=== PATIENT | female | born 1995 | race Caucasian/White ===

== ENCOUNTER 2019-03-09 11:37 | Outpatient (CLI) | payer BC ==
[~2019-03-09] VITALS: Ht 165.1 cm; Wt 95.9 kg
[~2019-03-09 11:37] MED LIST: GABAPENTIN100 MG PO; TOPAMAX50 MG PO
--- NOTE | 2019-03-09 12:00 | NUR ---
1140- Pt arrives on unit ambulatory with complaints of high BP at home, seeing "glitter" in her vision, and RUQ pain that is intermittent. Pt into bathroom, changes into gown. 1150- Pt into bed, EFM and TOCO on and tracing. Assessment completed. VSS. Plan to watch BPs and discuss Pt status with Dr Teran. Call light within reach.
[2019-03-09 12:01] VITALS: BP 118/74; PULSE 87; TEMP 98.6
[2019-03-09] MEDS ORDERED: CONCEPT DHA1 CAP PO (12:04)
[2019-03-09 12:30] VITALS: BP 104/66; PULSE 82
[2019-03-09 13:00] VITALS: BP 98/60; PULSE 76
[2019-03-09 14:00] VITALS: BP 120/68; PULSE 77
[2019-03-09 14:10] LABS: COLLECTION METHOD CLEAN CATCH
[2019-03-09 14:12] LABS: BASO % 0.1 % (0.0-2.0); EOS # 0.1 (0.0-0.7); EOS % 0.9 % (0-4.0); GRAN # 6.5 (1.4-6.5); GRAN % 71.8 % (42.2-75.2); HEMOGLOBIN 10.2 g/dl (12.5-16.0); LYMPH # 1.6 (1.2-3.4); LYMPH % 17.6 % (20.0-51.0); MEAN CELL VOLUME 88 fl (80.0-100.0); MEAN CORPUSCULAR HEMOGLOBIN 29 pg (27.0-31.0); MEAN CORPUSCULAR HGB CONC 33 g/dl (33.0-37.0); MEAN PLATELET VOLUME 9.7 fl (7.4-10.4); MONO # 0.7 (0.1-0.6); MONO % 8.2 % (1.7-9.3); PLATELET COUNT 192 K/mm3 (130-400); RED BLOOD COUNT 3.49 M/mm3 (4.10-5.30); REDCELL DISTRIBUTION WIDTH-CV 15.3 % (11.5-14.5)
[2019-03-09 14:15] LABS: HEMATOCRIT 30.8 % (37.0-47.0)
[2019-03-09 14:22] LABS: ALBUMIN 3.5 gm/dL (3.5-5.0); BILIRUBIN,TOTAL 0.4 mg/dL (0.0-1.0); CALCIUM 9.1 mg/dL (8.4-10.2); CREATININE, serum 0.56 (0.52-1.25); TOTAL PROTEIN 6.6 gm/dL (6.4-8.2)
[2019-03-09 14:26] LABS: AMORPHOUS CRYSTAL Present /uL; MUCOUS Present /lpf; PH 7 (5-8); SQUAMOUS EPITHELIAL 0-2 /hpf; URINE APPEARANCE Turbid; URINE BACTERIA Occasional /hpf; URINE BILIRUBIN Negative (NEGATIVE); URINE BLOOD Negative (NEGATIVE); URINE COLOR Yellow; URINE GLUCOSE Negative (NEGATIVE); URINE KETONE Negative (NEGATIVE); URINE LEUKOCYTE ESTERASE Negative (NEGATIVE); URINE NITRATE Negative (NEGATIVE); URINE PROTEIN(semi-quant) Negative (NEGATIVE); URINE UROBILINOGEN Negative (NEGATIVE)
[2019-03-09 14:30] VITALS: BP 105/65; PULSE 67
--- NOTE | 2019-03-09 14:30 | NUR ---
1430- EFM and TOCO off. Plan to discharge home explained. Encouraged Pt to keep next scheduled appointment with Dr Matta and to call if symptoms worsen. Pt verbalizes understanding. Pt up to void and changed into street clothes. 1440- Discharge paperwork given and explained. Pt ambulates off unit in stable condition with .
== END 2019-03-09 14:40 ==
LOC: LDRO 11:37 → LDR 12:10 → LDRO 14:40 → LDR 03-10 08:30
PROVIDERS: Student in an Organized Health Care Education/Training Program
DX: Z34.93 Encounter for supervision of normal pregnancy, unspecified, third trimester (principal); Z3A.37 37 weeks gestation of pregnancy
CPT/HCPCS: OP

== ENCOUNTER 2019-03-31 11:03 | Inpatient (IN) | payer BC ==
[~2019-03-31] VITALS: Ht 165.1 cm; Wt 95.5 kg
[~2019-03-31 11:03] MED LIST changes: +CONCEPT DHA1 CAP PO
--- NOTE | 2019-03-31 19:20 | NUR ---
1919- Pt arrived on unit ambulatory and escorted by for scheduled induction. Oriented to room, bed and call light within reach. 1923- EFM and toco monitors started. Vital signs WNL. Pt reports no contractions, denies vaginal bleeding and reports normal movement. Induction plan of care reviewed. 1954- Consents reviewed and signed. 2007- IV started and labs obtained. 2012- Pt off EFM to the bathroom. 2029- SVE by this RN FT/thick/-3. Cytotec placed as ordered. See EMAR for details.
[2019-03-31 19:30] VITALS: BP 128/75; PULSE 82; TEMP 98
[2019-03-31 20:47] LABS: MEAN CELL VOLUME 87 fl (80.0-100.0); MEAN CORPUSCULAR HEMOGLOBIN 29 pg (27.0-31.0); MEAN CORPUSCULAR HGB CONC 33 g/dl (33.0-37.0); PLATELET COUNT 208 K/mm3 (130-400); RED BLOOD COUNT 3.78 M/mm3 (4.10-5.30); REDCELL DISTRIBUTION WIDTH-CV 15.8 % (11.5-14.5)
[2019-03-31 21:00] VITALS: BP 123/77; PULSE 83
[2019-03-31 21:26] LABS: BAND 4 % (0-10); HYPOCHROMIA 1+; LYMPHOCYTE 18 % (20.0-51.0); METAMYELOCYTE 2 % (0-0); NEUTROPHILS 67 % (42.0-75.2); PLATELET ESTIMATE NORMAL (NORMAL)
[2019-03-31 21:30] VITALS: BP 111/68; PULSE 76
[2019-03-31 22:00] VITALS: BP 110/72; PULSE 82
[2019-04-01] VITALS (66 sets, daily range): BP systolic 96–139; BP diastolic 55–85; PULSE 60–110; TEMP 97.6–99.6
--- NOTE | 2019-04-01 06:15 | NUR ---
Report from Janessa Sanford RN and care of patient assumed. RN at bedside to introduce self to patient and review plan of care. At bedside palpating abdomen and adjusting toco. Patient denies feeling contractions until 0627.
--- NOTE | 2019-04-01 07:45 | NUR ---
Dr. Matta at bedside. Reviews FHR strip and contraction pattern. Vertex presentation confirmed via bedside u/s. SVE per provider . Orders to continue increasing Pitocin and physician will come reassess over lunch break.
--- NOTE | 2019-04-01 08:30 | NUR ---
Intermittent periods of maternal heart rate tracing due to maternal postition, sitting upright in bed. EFM adjusted. Patient becoming more uncomfortable with contractions.
--- NOTE | 2019-04-01 08:40 | NUR ---
Patient moving around in bed, difficulty tracing contractions via toco. Patient repostioned RL and toco adjusted.
--- NOTE | 2019-04-01 09:00 | NUR ---
Patient sitting upright in bed, maternal heart rate tracing. Patient up to bathroom then back to bed. Changing positions frequently, intermittent maternal heart rate tracing due to position. RN remains at bedside.
--- NOTE | 2019-04-01 15:50 | NUR ---
1550- SVE 10/+1. See physician notification, orders to labor down and begin pushing at 1630. Patient updated on plan of care, repositioned sitting upright and wedged left. 1630- Pace catheter removed prior to pushing, pericare given. Patient reports increased pressure and urge to push, coached on pushing. 1638- Patient begins pushing with contractions with RN at bedside.
--- NOTE | 2019-04-01 18:15 | NUR ---
Report recieved from Liv MILLER. at bedside assessing pushing and FHR strip reviewed. Plan of care explained to pt per provider. to remains on unit. This RN starts pushing with pt. Recurrent variables noted with contractions. 1831: Straight catherization completed with 75mls of bloody urine output noted. Pt continue pushing. 0: at bedside to assess pushing progress and reviewing FHR strip. Plan of care and vacuum delivery explained to pt and by . 1899: Pt prepped for vacuum delivery and assissted into footplates. 1903: Vacuum placed by and pt begins pushing with contractions. 1912: Vacuum pop off X1. Pt completes pushing with contraction and vacuum reapplied by . 1915: Vacuum pop off X2. Pt completes pushing with contractions and vacuum reapplied by . 1918: Vacuum extraction delivery of infants head by . Vacuum removed. Nuchal X2 reduced. 1919: Following delivery of infant shoulders and body. Pitocin off per protocol. Cord clamped X2 and cut by FOB. to warmer per pt's request. Cord gases obtained. 1923: Spontaneous delivery of intact placenta by . Pitocin resummed at 333mus/hr per protocol. Straight catherization completed. Second degree laceration repaired by . Fundal message completed. Fundus firm, midline and bleeding minimal. Small clots notes with message. Pericare provided, pads changed and ice pack applied. Pt repositioned in bed. Plan of care and safety precautions explained to pt and who verbalize understanding. Call light within reach.
--- NOTE | 2019-04-01 18:15 | NUR ---
Dr. Matta at bedside to assess pushing efforts. Patient continues to push with contractions. Report given to Donte Ware RN.
[2019-04-02 03:30] VITALS: BP 113/76; PULSE 79; TEMP 98.8
[2019-04-02 07:30] VITALS: BP 120/72; PULSE 74; TEMP 97.9
[2019-04-02 08:33] LABS: HEMATOCRIT 30.9 % (37.0-47.0)
--- NOTE | 2019-04-02 09:52 | NUR ---
Initial visit; Parents thanked for stopping by and offering congratulaions and God's blessings for the of their daughter. brought with her other visitors so she left them to visit.
[2019-04-02 11:30] VITALS: BP 127/80; PULSE 83; TEMP 97.5
[2019-04-02] MEDS ORDERED: IBU600 MG PO (11:52)
[2019-04-02] MEDS ORDERED: PERCOCET 325 MG1 TA2 PO (11:52)
[2019-04-02] MEDS ORDERED: ZOLOFT 50MG50 MG PO (11:53)
[2019-04-02 15:00] VITALS: BP 102/69; PULSE 78; TEMP 97.9
[2019-04-02 19:27] VITALS: BP 117/65; PULSE 82; TEMP 97.6
[2019-04-03 08:15] VITALS: BP 113/76; PULSE 83; TEMP 97.6
== END 2019-04-03 11:45 | disposition home or self-care (01) | DRG 807 ==
LOC: LDR 11:03 → OB 04-01 22:58
PROVIDERS: ADMIT Obstetrics & Gynecology
PROC: 10D07Z6 Extraction of Products of Conception, Vacuum, Via Natural or Artificial Opening (ICD-10-PCS; principal; 2019-04-01)
PROC: 0KQM0ZZ Repair Perineum Muscle, Open Approach (ICD-10-PCS; 2019-04-01)
PROC: 3E0P7VZ Introduction of Hormone into Female Reproductive, Via Natural or Artificial Opening (ICD-10-PCS; 2019-04-01)
PROC: 3E033VJ Introduction of Other Hormone into Peripheral Vein, Percutaneous Approach (ICD-10-PCS; 2019-04-01)
DX: O48.0 Post-term pregnancy (principal); Z37.0 Single live birth; Z23 Encounter for immunization; O99.344 Other mental disorders complicating childbirth; O70.1 Second degree perineal laceration during delivery; F41.9 Anxiety disorder, unspecified; Z3A.41 41 weeks gestation of pregnancy
CPT/HCPCS: J2405; J2590; J2795; J7120

== ENCOUNTER 2019-06-22 14:58 | Inpatient (IN) | payer BC ==
[~2019-06-22] VITALS: Ht 165.1 cm; Wt 87.6 kg
[~2019-06-22 14:58] MED LIST changes: +IBU600 MG PO; +PERCOCET 325 MG1 TA2 PO; +ZOLOFT 50MG50 MG PO
[2019-06-22] MEDS ORDERED: NORCO 325 MG-51 TAB PO (15:16)
[2019-06-22] MEDS ORDERED: COLACE 100100 MG/CAP PO (15:22)
[2019-06-22] MEDS ORDERED: DULCOLAX TAB5 MG PO (15:23)
[2019-06-22 15:30] LABS: BASO % 0.2 % (0.0-2.0); EOS # 0.4 (0.0-0.7); EOS % 4.3 % (0-4.0); GRAN # 5.9 (1.4-6.5); GRAN % 66.9 % (42.2-75.2); HEMATOCRIT 38.1 % (37.0-47.0); HEMOGLOBIN 12.6 g/dl (12.5-16.0); LYMPH # 1.5 (1.2-3.4); LYMPH % 17.1 % (20.0-51.0); MEAN CELL VOLUME 87 fl (80.0-100.0); MEAN CORPUSCULAR HEMOGLOBIN 29 pg (27.0-31.0); MEAN CORPUSCULAR HGB CONC 33 g/dl (33.0-37.0); MEAN PLATELET VOLUME 8.9 fl (7.4-10.4); MONO % 11.2 % (1.7-9.3); PLATELET COUNT 247 K/mm3 (130-400); RED BLOOD COUNT 4.36 M/mm3 (4.10-5.30); REDCELL DISTRIBUTION WIDTH-CV 13.9 % (11.5-14.5)
[2019-06-22 15:39] LABS: ALBUMIN 4.3 gm/dL (3.5-5.0); BILIRUBIN,TOTAL 1.1 mg/dL (0.0-1.0); CALCIUM 9.4 mg/dL (8.4-10.2); CREATININE, serum 0.72 (0.52-1.25)
[2019-06-22 15:56] LABS: C-REACTIVE PROTEIN 15.2 mg/dL (0.0-0.9)
--- NOTE | 2019-06-22 18:45 | NUR ---
Patient arrives to floor from ED per cart. Is alert and oriented, cries in pain. Has SL to left AC. Family at bedside.
--- NOTE | 2019-06-22 19:10 | NUR ---
Medicated with Dilaudid 0.5mg IVP at this time. Rates pain 6/10 to right abdomen. Abdomen is distended, soft and very sensitive to touch.
[2019-06-22 19:30] VITALS: BP 138/79; PULSE 68; TEMP 98.4
--- NOTE | 2019-06-22 20:50 | NUR ---
Patient reports feeling like it is hard to breathe, assisted to bathroom then to chair. SaO2 96% on room air. Feels better sitting in chair.
--- NOTE | 2019-06-22 21:02 | NUR ---
Medicated with Dilaudid 0.5mg IVP for pain to right abdomen 12/30. Jello given to patient. Reports she hasn't passed gas and feels bloated. Will call Dr Cardozo for dulcolax suppos. Remains sitting in chair.
--- NOTE | 2019-06-22 22:00 | NUR ---
Medicated with Dulcolax suppository. Encouraged to hold until she feels like she has good urge to have a BM.
--- NOTE | 2019-06-22 23:08 | NUR ---
Medicated with Dilaudid 0.5mg IVP for pain 7/10 to right abdomen. Reports no gas or stool from suppository. Remains sitting up in chair.
[2019-06-22 23:15] VITALS: BP 113/67; PULSE 99; TEMP 98
[2019-06-23] VITALS (12 sets, daily range): BP systolic 122–139; BP diastolic 69–90; PULSE 89–117; TEMP 98–99.3
--- NOTE | 2019-06-23 01:50 | NUR ---
Patient sitting in chair, denies need for pain meds at this time.
--- NOTE | 2019-06-23 03:17 | NUR ---
PATIENT REMAINS UP IN CHAIR AT BEDSIDE. DENIES NEED FOR PAIN MEDS AT THIS TIME.
--- NOTE | 2019-06-23 03:55 | NUR ---
MEDICATED WITH IV DILAUDID 0.5MG AFTER PATIENT HAD BEEN UP TO BATHROOM AND VOIDED. ACTIVITY MAKES PAIN TO RIGHT ABDOMEN SEVERE. ICE PACK TO RIGHT SHOULDER FOR COMFORT.
--- NOTE | 2019-06-23 05:23 | NUR ---
PATIENT YELLING OUT, SIGNIFICANT SHARP, STABBING PAIN TO RIGHT ABDOMEN. AREA IS DISTENDED, SOFT AND SENSITIVE TO TOUCH. BELCHING, NO FLATUS. VOIDS 150CC AT THIS TIME. SITTING ON EDGE OF BED, HEAT PACK APPLIED.
--- NOTE | 2019-06-23 05:28 | NUR ---
SPOKE WITH DR ROJAS REGARDING PT PAIN. NEW ORDERS RECEIVED.
--- NOTE | 2019-06-23 05:35 | NUR ---
Medicated with Dilaudid 0.5mg IVP and Zofran 4mg IVP at this time. Patient sitting in recliner chair at bedside. Spouse at bedside.
--- NOTE | 2019-06-23 06:18 | NUR ---
Patient resting quietly in the chair.
--- NOTE | 2019-06-23 08:00 | NUR ---
PATIENT IS A&O. VSS. PATIENT C/O ABDOMINAL PAIN AND GAS. PATIENT IS UNABLE TO PASS GAS BUT IS HAVING GAS PAIN IN SHOULDERS AND RIGHT SIDE. PATIENT UP IN BEDSIDE CHAIR WITH K-PAP ON. PATIENT GETTING IV DILAUDID AND NAUSEA MEDICATIONS FREQUENTLY. PATIENT CAN HARDLY AMBULATE DUE TO PAIN. USING BEDSIDE COMMODE. PATIENT HAD A BABY 2 MONTHS AND STATES SHE CAN'T CARE FOR HER LIKE THIS. PATIENT HAD HER GALLBLADER REMOVED IN [facility] OVER A WEEK AGO AND CALLED MANY TIMES ABOUT HER INCREASING PAIN BUT WAS TOLD TO WALK AND SHE WOULD BE FINE. PATIENT'S MOTHER LATER DROVE HER HERE. WAITING FOR SURGEON TO ROUND. WILL LIKELY DO A HIDA SCAN TODAY AND POSSIBLE ERCP.
--- NOTE | 2019-06-23 09:16 | NUR ---
TRUDI met with the patient and her mother, Keira to discuss a discharge plan. The patient was sleepy and answered some question and patient's mother answered some too. The patient lives in [place] with her . The patient does not use DME and is independent with ADLs. The patient's PCP is MARGUERITE Tobar in [place] and receives medications from [facility] or [facility] in [place]. The patient does not have advanced directives in the EMR. The patient will return home upon discharge with her mother or providing transportation. There are no additional needs at this time.
--- NOTE | 2019-06-23 09:25 | NUR ---
PATIENT GOING DOWN FOR HIDA SCAN.
--- NOTE | 2019-06-23 11:18 | NUR ---
Initial visit; Patient out of room, News Gathering Technician spoke with family, letting them know of the availability of spiritual care at our hospital and also News Gathering Technician offered God's blessings to patient and family.
--- NOTE | 2019-06-23 16:30 | NUR ---
PATIENT GOING DOWN TO OR FOR ERCP
--- NOTE | 2019-06-23 18:40 | NUR ---
PATIENT BACK IN ROOM FROM ERCP. VSS. FAMILY AT BEDSIDE. JAVA PORTAL DEVELOPER NURSE AT BEDSIDE FOR BEDSIDE REPORT.
--- NOTE | 2019-06-23 21:23 | NUR ---
PATIENT UP FROM ER TO ROOM 324 AT 1830. VSS. HR SLIGHTLY ELEVATED. A&O. STATES HER PAIN IS MINIMAL AND CONTROLLED WITH TRAVELING REPAIR ACCOUNTANT. TENDERNESS TO LUQ UPON PALPATION. ABD SOUNDS ABSENT IN ALL QUADRANTS EXCEPT FOR RLQ. X4 LAPS W GLUE CDI AND OPEN TO AIR. ABD IS DISTENDED AND FIRM. DENIES NAUSEA AT THIS TIME. TOOK SCHEDULED MEDICATIONS WITHOUT DIFFICULTY. TENDERNESS NOTED TO THROAT. STATES SHE IS HAVING SHOULDER PAIN, KPAD APPLIED. ABX INFUSING TO L AC WITHOUT ISSUE. NO FURTHER NEEDS AT THIS TIME. WILL CONTINUE TO MONITOR.
--- NOTE | 2019-06-23 22:18 | NUR ---
patients O2 sats dropped to 70s. 2 L O2 via NC initiated. HR elevated to 120s. patient awakens to name. states she feels okay. no further needs at this time. will continue to monitor.
--- NOTE | 2019-06-23 22:59 | NUR ---
patient ambulated to bathroom with standby assist. passed loose unmeasured stool and voided. patient states pain has increased since ambulating. teaching done regarding mortuary beautician. will no further needs at this time. will continue to monitor.
[2019-06-24] VITALS (10 sets, daily range): BP systolic 102–139; BP diastolic 52–79; PULSE 70–98; TEMP 97.4–98.5
[2019-06-24 06:19] LABS: BASO % 0.2 % (0.0-2.0); EOS # 0.4 (0.0-0.7); EOS % 4.9 % (0-4.0); GRAN # 5.3 (1.4-6.5); GRAN % 63.7 % (42.2-75.2); LYMPH # 1.5 (1.2-3.4); MEAN CELL VOLUME 88 fl (80.0-100.0); MEAN CORPUSCULAR HGB CONC 33 g/dl (33.0-37.0); MEAN PLATELET VOLUME 8.6 fl (7.4-10.4); MONO # 1.1 (0.1-0.6); MONO % 12.8 % (1.7-9.3); PLATELET COUNT 231 K/mm3 (130-400); RED BLOOD COUNT 3.56 M/mm3 (4.10-5.30)
[2019-06-24 06:26] LABS: HEMATOCRIT 31.3 % (37.0-47.0); HEMOGLOBIN 10.4 g/dl (12.5-16.0); MEAN CORPUSCULAR HEMOGLOBIN 29 pg (27.0-31.0)
[2019-06-24 06:34] LABS: ALBUMIN 3.3 gm/dL (3.5-5.0); BILIRUBIN,TOTAL 1.1 mg/dL (0.0-1.0); CALCIUM 8.8 mg/dL (8.4-10.2); CREATININE, serum 0.67 (0.52-1.25); TOTAL PROTEIN 6.4 gm/dL (6.4-8.2)
[2019-06-24 06:35] LABS: INR 1.2 (0.8-3.0); PROTHROMBIN TIME 14.2 SECONDS (9.7-12.8)
--- NOTE | 2019-06-24 07:07 | NUR ---
Reported onto PAUL Bond
--- NOTE | 2019-06-24 07:30 | NUR ---
Shift assessment completed. Pt reports no pain, states "feeling much better than yesterday." Lap incisions x4 CDI and CONSTRUCTION INSPECTOR due to cholecystectomy on 06-17-19. INT in left upper arm no pain, redness, or swelling at site. Pt on 1L O2 NC. Abdominal is distended with hypoactivity in all quadrants. SANDER OPERATOR dilaudid 0.3 mg/6 mins when needed. Liquid diet with no complications.
--- NOTE | 2019-06-24 09:30 | NUR ---
Patient alert and oriented, answers questions appropriately. Abdomen soft, non tender, non distended. Bowel sounds active x4 quads. +Flatus. No c/o abdominal pain or tenderness. ASSOCIATE PROFESSOR OF ART HISTORY infusing into LAC IV, settings verified against MAR. Requests advance in diet and activity. No c/o at this time.
--- NOTE | 2019-06-24 09:45 | NUR ---
requested to ambulate. ambulated with family member around floor for 15 minutes. sitting on bed now and has no complaints of pain.
--- NOTE | 2019-06-24 10:15 | NUR ---
Initial visit; Patient sleeping, Rag Inspector spoke with family, making them aware of the availability of Spiritual Care at our hospital and wishing them well and offering God's blessings.
--- NOTE | 2019-06-24 11:01 | NUR ---
Reported off to PAUL Bond
--- NOTE | 2019-06-24 20:00 | NUR ---
Pt. sitting up in chair at this time. Pt. is A&OX3, assessment complete. INT to lt. forearm patent. Pt. reports pain at a 5 on pain scale, will give pain meds per orders. Pt. denies further needs, call light within reach.
[2019-06-25 04:16] VITALS: BP 114/55; PULSE 64; TEMP 98.2
[2019-06-25 07:13] VITALS: BP 114/65; PULSE 68; TEMP 98.2
--- NOTE | 2019-06-25 07:15 | NUR ---
Reported onto PAUL Bond
[2019-06-25 07:23] LABS: ALBUMIN 3.3 gm/dL (3.5-5.0); BILIRUBIN,TOTAL 0.7 mg/dL (0.0-1.0); CALCIUM 8.8 mg/dL (8.4-10.2); CREATININE, serum 0.58 (0.52-1.25); POTASSIUM 3.6 mmol/L (3.4-5.0); TOTAL PROTEIN 6.3 gm/dL (6.4-8.2)
[2019-06-25 07:28] LABS: BASO % 0.3 % (0.0-2.0); EOS # 0.6 (0.0-0.7); EOS % 8.8 % (0-4.0); GRAN # 3.3 (1.4-6.5); GRAN % 52.3 % (42.2-75.2); HEMOGLOBIN 10.3 g/dl (12.5-16.0); LYMPH # 1.6 (1.2-3.4); LYMPH % 26.1 % (20.0-51.0); MEAN CELL VOLUME 88 fl (80.0-100.0); MEAN CORPUSCULAR HEMOGLOBIN 29 pg (27.0-31.0); MEAN CORPUSCULAR HGB CONC 33 g/dl (33.0-37.0); MEAN PLATELET VOLUME 8.9 fl (7.4-10.4); MONO # 0.7 (0.1-0.6); MONO % 11.9 % (1.7-9.3); PLATELET COUNT 241 K/mm3 (130-400); RED BLOOD COUNT 3.59 M/mm3 (4.10-5.30); REDCELL DISTRIBUTION WIDTH-CV 13.5 % (11.5-14.5)
[2019-06-25 07:33] LABS: HEMATOCRIT 31.5 % (37.0-47.0)
--- NOTE | 2019-06-25 08:00 | NUR ---
Shift assessment completed. First meal on fat controlled diet tolerated well. No reports of pain. Patient stated " she is ready to go home". Lap incisions x4 CDI, well approximated and TRAFFIC SAFETY ADMINISTRATOR. INT in JULISSA with no pain, redness, or swelling at site. Abdomen is soft with audible bowel sounds in all quadrants. Last bowel movement was on 12-19. passing flatus.
--- NOTE | 2019-06-25 10:00 | NUR ---
Patient alert and oriented, answers questions appropriately. See assessment. Abdomen soft, non tender, non distended. Bowel sounds active x4 quads. +Flatus. +Bowel movement. No c/o abdominal pain or pressure. No other c/o at this time.
[2019-06-25 10:25] VITALS: BP 103/60; PULSE 60; TEMP 98.3
--- NOTE | 2019-06-25 10:52 | NUR ---
Reported off to PAUL Bond.
[2019-06-25] MEDS ORDERED: NORCO 325 MG-51 TAB PO (11:17)
[2019-06-25] MEDS ORDERED: PROTONIX 40MG T40 MG PO (11:18)
[2019-06-25] MEDS ORDERED: CIPRO 500MG TA500 MG PO (11:18)
[2019-06-25] MEDS ORDERED: FLAGYL500 MG PO (11:18)
--- NOTE | 2019-06-25 12:55 | NUR ---
Discharge instructions reviewed with patient and spouse, verbalized understanding. Discharged ambulatory to auto/home with family at 1255.
== END 2019-06-25 12:55 | disposition home or self-care (01) | DRG 393 ==
LOC: COL.ER 14:58 → SURG 17:24
PROVIDERS: Emergency Medicine; Internal Medicine Gastroenterology; ADMIT Surgery
PROC: 0F798DZ Dilation of Common Bile Duct with Intraluminal Device, Via Natural or Artificial Opening Endoscopic (ICD-10-PCS; principal; 2019-06-23 16:45)
DX: K91.89 Other postprocedural complications and disorders of digestive system (principal); K25.4 Chronic or unspecified gastric ulcer with hemorrhage; F32.9 Major depressive disorder, single episode, unspecified; F41.9 Anxiety disorder, unspecified; G43.909 Migraine, unspecified, not intractable, without status migrainosus; Y83.8 Other surgical procedures as the cause of abnormal reaction of the patient, or of later complication, without mention of misadventure at the time of the procedure; K59.00 Constipation, unspecified; Z90.49 Acquired absence of other specified parts of digestive tract; Z88.8 Allergy status to other drugs, medicaments and biological substances; Z79.891 Long term (current) use of opiate analgesic
CPT/HCPCS: OP; A9537; C1769; C2625; C9113; G0378; J0744; J1170; J2060; J2405; J2550; J2704; J7030; Q9967

== ENCOUNTER 2019-07-01 11:04 | Inpatient (IN) | payer BC ==
[2019-07-01] VITALS (15 sets, daily range): BP systolic 106–128; BP diastolic 62–89; PULSE 83–116; TEMP 98.8–99.7
[~2019-07-01] VITALS: Wt 80.0 kg
[~2019-07-01 11:04] MED LIST changes: +CIPRO 500MG TA500 MG PO; +COLACE 100100 MG/CAP PO; +DULCOLAX TAB5 MG PO; +FLAGYL500 MG PO; +NORCO 325 MG-51 TAB PO; +PROTONIX 40MG T40 MG PO
[2019-07-01 11:33] LABS: HEMATOCRIT 38.4 % (37.0-47.0); HEMOGLOBIN 12.9 g/dl (12.5-16.0); MEAN CELL VOLUME 87 fl (80.0-100.0); MEAN CORPUSCULAR HEMOGLOBIN 29 pg (27.0-31.0); MEAN CORPUSCULAR HGB CONC 34 g/dl (33.0-37.0); MEAN PLATELET VOLUME 8.6 fl (7.4-10.4); PLATELET COUNT 406 K/mm3 (130-400); RED BLOOD COUNT 4.41 M/mm3 (4.10-5.30); REDCELL DISTRIBUTION WIDTH-CV 13.8 % (11.5-14.5)
[2019-07-01 11:42] LABS: COLLECTION METHOD CLEAN CATCH
[2019-07-01 12:04] LABS: MUCOUS Present /lpf; PH 6 (5-8); URINE APPEARANCE Clear; URINE BACTERIA None Seen /hpf; URINE BILIRUBIN Negative (NEGATIVE); URINE BLOOD Negative (NEGATIVE); URINE COLOR Yellow; URINE GLUCOSE Negative (NEGATIVE); URINE KETONE Negative (NEGATIVE); URINE LEUKOCYTE ESTERASE 1+ (NEGATIVE); URINE NITRATE Negative (NEGATIVE); URINE PROTEIN(semi-quant) Negative (NEGATIVE); URINE RBC 0-2 /hpf; URINE UROBILINOGEN Negative (NEGATIVE)
[2019-07-01] MEDS ORDERED: PROBIOTIC ACID1 EAC3 PO (12:13)
[2019-07-01 12:15] LABS: ALBUMIN 4.7 gm/dL (3.5-5.0); BILIRUBIN,TOTAL 0.8 mg/dL (0.0-1.0); C-REACTIVE PROTEIN 8.4 mg/dL (0.0-0.9); CALCIUM 9.9 mg/dL (8.4-10.2); CREATININE, serum 0.76 (0.52-1.25); POTASSIUM 4.2 mmol/L (3.4-5.0); TOTAL PROTEIN 8.8 gm/dL (6.4-8.2)
[2019-07-01 12:32] LABS: BAND 12 % (0-10); EOSINOPHIL 1 % (0-4); LYMPHOCYTE 9 % (20.0-51.0); NEUTROPHILS 72 % (42.0-75.2); PLATELET ESTIMATE NORMAL (NORMAL)
--- NOTE | 2019-07-01 14:22 | NUR ---
PT BROUGHT BY WHEELCHAIR TO CT ROOM AND ASSISTED ONTO TABLE. MONITORING EQUIPMENT PLACED. PT SCANNED.
--- NOTE | 2019-07-01 14:42 | NUR ---
1435PT WAS GIVEN 1MG VERSED AND 50 MCG FENTANYL 1442PT WAS GIVEN 50 MCG FENTANYL PT REPORTS FEELING MORE COMFORTABLE
--- NOTE | 2019-07-01 15:12 | NUR ---
GREENISH COLORED FLUID COLLECTED AND WILL BE SENT FOR ANEROBES AND AEROBES.
--- NOTE | 2019-07-01 15:25 | NUR ---
Arrives to room 341 via wheelchair from radiology after CT guided drain placement. and mother at side. Patient tearful complains of pain where drain site is. Site with guaze dressing, CDI. No drainage in tube at this time. Call light in reach.
--- NOTE | 2019-07-01 15:28 | NUR ---
called report to alida. pt was given 1 mg versed and 100 mcg fentanyl during. drain is sutured in place and tegaderm applied. pt denies pain at present.
[2019-07-01] MEDS ORDERED: TYLENOL 500MG500 MG PO (15:34)
[2019-07-01] MEDS ORDERED: NORCO 325 MG-51 TAB PO (15:35)
--- NOTE | 2019-07-01 15:40 | NUR ---
Flaquita with [facility] here for PICC placement. Family at side.
--- NOTE | 2019-07-01 22:08 | NUR ---
Pt doing ok. Laying in bed with at bedside. Does c/o pain at drain incision site, (CD&I with gauze). Gave PRN dilaudid. Had mild temp so PRN oxy/tylenol was given. Patient ambulated to bathroom x1 assist and tolerated fine. Urine was yellow and clear. LR running to PICC in RUE. No concerns at this time. Call light within reach, will continue to monitor.
[2019-07-02] VITALS (12 sets, daily range): BP systolic 101–113; BP diastolic 58–71; PULSE 81–99; TEMP 97.9–98.9
--- NOTE | 2019-07-02 04:07 | NUR ---
Pt has done ok through night, has been receiving PRN dilaudid about every 2 hours. States pain has been the same, not better or worse.
--- NOTE | 2019-07-02 09:56 | NUR ---
Streaks of blood mixed with straw colored fluid now noted in abdominal drain. Output remains minimal/scant - MD Sloan aware
[2019-07-02 09:59] LABS: BASO % 0.1 % (0.0-2.0); EOS # 0.8 (0.0-0.7); EOS % 5.5 % (0-4.0); GRAN # 10.6 (1.4-6.5); GRAN % 75.3 % (42.2-75.2); LYMPH # 1.3 (1.2-3.4); LYMPH % 9.1 % (20.0-51.0); MEAN CELL VOLUME 87 fl (80.0-100.0); MEAN CORPUSCULAR HEMOGLOBIN 29 pg (27.0-31.0); MEAN CORPUSCULAR HGB CONC 33 g/dl (33.0-37.0); MEAN PLATELET VOLUME 8.7 fl (7.4-10.4); MONO # 1.3 (0.1-0.6); MONO % 9.3 % (1.7-9.3); RED BLOOD COUNT 3.82 M/mm3 (4.10-5.30); REDCELL DISTRIBUTION WIDTH-CV 14.1 % (11.5-14.5)
[2019-07-02 10:00] LABS: HEMATOCRIT 33.2 % (37.0-47.0); PLATELET COUNT 281 K/mm3 (130-400)
[2019-07-02 10:10] LABS: ALBUMIN 3.8 gm/dL (3.5-5.0); BILIRUBIN,TOTAL 0.7 mg/dL (0.0-1.0); CREATININE, serum 0.66 (0.52-1.25); POTASSIUM 4.2 mmol/L (3.4-5.0); TOTAL PROTEIN 7.1 gm/dL (6.4-8.2)
--- NOTE | 2019-07-02 12:14 | NUR ---
Initial visit; Patient and her mom thanked Pearl Glue Drier for looking in on her and offering God's blessings.
--- NOTE | 2019-07-02 15:30 | NUR ---
MD Cas called and informed me [facility] and [facility] have not accepted pt for transfer. Pt and family updated - questions invited and answered
--- NOTE | 2019-07-02 15:41 | NUR ---
Radiology called for Abdomen Complete XRay
--- NOTE | 2019-07-02 16:24 | NUR ---
TRUDI met with the patient and her mother, Keira to discuss a discharge plan. The patient was asleep. Keira answered questions. The patient lives in [place] with her . The patient has no DME and is independent with ADLs. The patient's PCP is MARGUERITE Tobar and patient receives medications at [facility] in [place]. The patient does not have advanced directives in the EMR. resident services director will continue to follow to ensure a safe discharge. Keira Hernadez .
--- NOTE | 2019-07-02 17:17 | NUR ---
Pt resting in bed, eyes closed when not disturbed, respirations equal and unlabored. Pt's and mother expressed concern of worsening symptoms and wishes to speak with disability case manager. Family educated on: no more fevers, WBC has improved, abdominal XRay performed at 1600 revealed no distention, no free air, catheter placement in correct place and stent in bile duct is stable and no bowel obstruction is observed and pt is tolerating PO intake. Family is still concerned.
--- NOTE | 2019-07-02 18:38 | NUR ---
MD Cas contacted again - pt's pain continues to be rated at 4/10 with no relieve from medications. Pt appears to be uncomfortable by facial gimmace and inability to lay on side. MD Cas will input orders for MOBILE HOME INSTALLER, heating pads, and stat labs (lab called at 1840). Pt and family updated at this time.
--- NOTE | 2019-07-02 19:30 | NUR ---
Lab drawn without difficulty from Picc line. Sushil MILLER reviewed new orders for FINANCIAL ACCOUNTING MANAGER dilaudid pain medication/management with patient and family and FINANCIAL ACCOUNTING MANAGER begun without problems. Patient denies nausea at this time. Mother and in visiting/very attentive. Patient reports better pain relief/relaxation following initial and following dose of Dilaudid.
[2019-07-02 19:39] LABS: BASO % 0.3 % (0.0-2.0); EOS # 0.8 (0.0-0.7); EOS % 7.1 % (0-4.0); GRAN # 7.6 (1.4-6.5); GRAN % 66.3 % (42.2-75.2); HEMOGLOBIN 10.5 g/dl (12.5-16.0); LYMPH # 1.8 (1.2-3.4); LYMPH % 15.9 % (20.0-51.0); MEAN CELL VOLUME 87 fl (80.0-100.0); MEAN CORPUSCULAR HEMOGLOBIN 29 pg (27.0-31.0); MEAN CORPUSCULAR HGB CONC 33 g/dl (33.0-37.0); MEAN PLATELET VOLUME 8.6 fl (7.4-10.4); MONO # 1.1 (0.1-0.6); MONO % 9.8 % (1.7-9.3); PLATELET COUNT 292 K/mm3 (130-400); RED BLOOD COUNT 3.65 M/mm3 (4.10-5.30); REDCELL DISTRIBUTION WIDTH-CV 13.7 % (11.5-14.5)
[2019-07-02 19:51] LABS: HEMATOCRIT 31.7 % (37.0-47.0)
[2019-07-02 19:57] LABS: ALBUMIN 3.5 gm/dL (3.5-5.0); BILIRUBIN,TOTAL 0.6 mg/dL (0.0-1.0); CALCIUM 8.8 mg/dL (8.4-10.2); CREATININE, serum 0.67 (0.52-1.25); POTASSIUM 3.8 mmol/L (3.4-5.0); TOTAL PROTEIN 6.9 gm/dL (6.4-8.2)
--- NOTE | 2019-07-02 22:30 | NUR ---
Following IV ativan for anxiety, patient reports feeling better and pain level RUQ 2/10 now. Affect calm. Visits about 3 month old baby.
--- NOTE | 2019-07-03 | NUR ---
Patient rests with eyes closed. Respirations 14 and with ease. Denies needs. Reviewed IV zosyn and hung and infusing without difficulty to PICC ANNIKA. resting in recliner.
--- NOTE | 2019-07-03 02:05 | NUR ---
Patient rests quietly in bed. Respirations with ease.
--- NOTE | 2019-07-03 02:20 | NUR ---
Patient woke up when nurse into room to hang new IVF. States no pain at rest but with movement now 4-5/10 on pain scale and utilizes SILVERWARE BUFFER on demand.
[2019-07-03 04:02] VITALS: BP 109/65; PULSE 78; TEMP 98.4
--- NOTE | 2019-07-03 05:59 | NUR ---
PATIENT RESTS WITH EYES CLOSED WHEN INTO HANG IV ZOSYN. RESPIRATIONS WITH EASE. SCD'S ON.
[2019-07-03 06:05] LABS: BASO % 0.2 % (0.0-2.0); EOS # 0.8 (0.0-0.7); EOS % 7.8 % (0-4.0); HEMOGLOBIN 10.4 g/dl (12.5-16.0); LYMPH # 1.6 (1.2-3.4); LYMPH % 15.3 % (20.0-51.0); MEAN CELL VOLUME 88 fl (80.0-100.0); MEAN CORPUSCULAR HEMOGLOBIN 29 pg (27.0-31.0); MEAN CORPUSCULAR HGB CONC 33 g/dl (33.0-37.0); MEAN PLATELET VOLUME 8.8 fl (7.4-10.4); MONO % 9.2 % (1.7-9.3); PLATELET COUNT 269 K/mm3 (130-400); RED BLOOD COUNT 3.55 M/mm3 (4.10-5.30); REDCELL DISTRIBUTION WIDTH-CV 13.7 % (11.5-14.5)
[2019-07-03 06:18] LABS: ALBUMIN 3.3 gm/dL (3.5-5.0); BILIRUBIN,TOTAL 0.6 mg/dL (0.0-1.0); CALCIUM 8.7 mg/dL (8.4-10.2); CREATININE, serum 0.67 (0.52-1.25); POTASSIUM 3.9 mmol/L (3.4-5.0); TOTAL PROTEIN 6.5 gm/dL (6.4-8.2)
[2019-07-03 06:19] LABS: HEMATOCRIT 31.2 % (37.0-47.0)
[2019-07-03 08:17] VITALS: BP 116/73; PULSE 100; TEMP 98.3
--- NOTE | 2019-07-03 09:21 | NUR ---
The patient's RN informed TRUDI that the patient and her family would like to speak to TRUDI. TRUDI then met with the patient, patient's , and her mother (Keira). The patient and her mother expressed concerns with her stay here and how they want to transfer to [facility]. TRUDI notified Concession Attendant, the patient's RN, and the floor tiling professional. The patient's attending has been notified of the patient wanting to transfer. TRUDI attempted to contact Jacqueline, with Risk Management. TRUDI left her a voicemail. TRUDI provided the patient's mother with Risk Management's phone number. TRUDI contacted Adele, with the transfer team at [facility]. Adele reports that they will re-open the case and will contact TRUDI back. TRUDI to continue to follow.
--- NOTE | 2019-07-03 10:32 | NUR ---
Adele, with the transfer team at [facility], reports that they have revisited the patient's case and report that they still would not be able to accept the patient; due to having no beds and it being a lateral transfer. SW notified the patient's RN and Furnace Repairer. SW and Furnace Repairer met with the patient, patient's mother, and to inform. SW and Furnace Repairer then met with the patient's mother and alone to address their concerns. The patient's mother and report that they would still like to get the patient to [facility], but are agreeable with her staying here and knowing the patient's risks if she were to leave without being medically cleared. SW and Furnace Repairer provided support. The patient's mother and 's questions were all answered. SW to continue to follow.
--- NOTE | 2019-07-03 11:28 | NUR ---
Assessment completed, alert/oriented, vital signs stable/ afebrile, WBC wnl today at 10.4, patient pain is well controlled with HONEYCOMB DECAPPER and only reporting drain site discomfor at this time, minimal ouput in drain / greenish with blood tinge noted, abd soft and BS +, advacning diet as tolerated and patient doing well with Full liquids, denies any N/V, patient and family still unhappy with overall stay and want to be trasnferred to [facility], has been in the room and discussed in length plan of care and that both and [facility] denied transfer, Social work and stock control supervisor also following the case, patient denies other needs from a nursing standpoint at this time
[2019-07-03 13:00] VITALS: BP 105/58; PULSE 72; TEMP 98
[2019-07-03 16:00] VITALS: BP 100/61; PULSE 70; TEMP 98.2
--- NOTE | 2019-07-03 20:42 | NUR ---
PT IS ALERT, OX3, COOPERATIVE AND APPROPRIATE; AFFECT SLIGHTLY FLAT. PARENTS IN ROOM WITH PT. PT REPORTS SOME PAIN TO UPPER ABD WITH ACTIVITY, RATES AT 2/10 CURRENTLY, STATES SHE OCC USES HER BANDER OPERATOR BUTTON AND PAIN IS CONTROLLED WELL WITH THAT USE. PT DENIES URINARY ISSUES. DENIES SOB, ALTHOUGH STATES IT IS DIFFICULT TO TAKE DEEP BREATHS D/T ABD PAIN. IS AT BEDSIDE AND PT REPORTS USING THIS OCC. DENIES FLATUS, REPORTS BELCHING OCC. INDEPENDENT WITH ACTIVITY IN ROOM. CALL LIGHT WITHIN REACH.
[2019-07-03 20:49] VITALS: BP 104/60; PULSE 74; TEMP 98.5
[2019-07-03 23:45] VITALS: BP 106/67; PULSE 65; TEMP 97.9
--- NOTE | 2019-07-04 00:44 | NUR ---
DR STEINBERG NOTIFIED REGARDING PT'S REQUEST FOR ATIVAN D/T INCREASED ANXIETY AND DIFFICULTY SLEEPING. DR STEINBERG STATES IT IS APPROPRIATE TO GIVE THE DOSE OF ATIVAN REQUESTED.
[2019-07-04 03:03] VITALS: BP 103/65; PULSE 59; TEMP 98.1
[2019-07-04 06:16] LABS: BASO % 0.3 % (0.0-2.0); EOS # 0.7 (0.0-0.7); EOS % 7.4 % (0-4.0); GRAN # 5.6 (1.4-6.5); GRAN % 64.1 % (42.2-75.2); HEMOGLOBIN 10.2 g/dl (12.5-16.0); LYMPH # 1.6 (1.2-3.4); LYMPH % 18.6 % (20.0-51.0); MEAN CELL VOLUME 87 fl (80.0-100.0); MEAN CORPUSCULAR HEMOGLOBIN 29 pg (27.0-31.0); MEAN CORPUSCULAR HGB CONC 33 g/dl (33.0-37.0); MEAN PLATELET VOLUME 8.8 fl (7.4-10.4); MONO # 0.8 (0.1-0.6); PLATELET COUNT 279 K/mm3 (130-400); RED BLOOD COUNT 3.56 M/mm3 (4.10-5.30); REDCELL DISTRIBUTION WIDTH-CV 13.5 % (11.5-14.5)
[2019-07-04 06:17] LABS: HEMATOCRIT 31.1 % (37.0-47.0)
[2019-07-04 06:25] LABS: ALBUMIN 3.4 gm/dL (3.5-5.0); BILIRUBIN,TOTAL 0.4 mg/dL (0.0-1.0); CALCIUM 8.9 mg/dL (8.4-10.2); CREATININE, serum 0.68 (0.52-1.25); POTASSIUM 3.8 mmol/L (3.4-5.0); TOTAL PROTEIN 6.7 gm/dL (6.4-8.2)
--- NOTE | 2019-07-04 06:39 | NUR ---
PT REPORTS SHE SLEPT WELL FOLLOWING THE DOSE OF ATIVAN LAST NIGHT, PT IS C/O INCREASED PAIN THIS AM WHEN AWAKENED; ENCOURAGED PT TO PUSH HER EGG PRODUCER BUTTON AT THIS TIME. LABS DRAWN OFF PICC THIS AM. PT DENIES ANY OTHER NEEDS, CALL LIGHT WITHIN REACH.
[2019-07-04 08:44] VITALS: BP 108/62; PULSE 60; TEMP 98.8
[2019-07-04 11:52] VITALS: BP 96/50; PULSE 60; TEMP 98
[2019-07-04 16:09] VITALS: BP 106/65; PULSE 56; TEMP 97.7
--- NOTE | 2019-07-04 18:00 | NUR ---
Patient has been doing well today. She has been up walking a few times today. Denies nausea. Pain was well controlled with dilauded but she is now controlled with PO medications. Her family has been at bedside most the day. She has been switched to oral antibiotics as well. She is INT'd her orders from Dr Cardozo. She showered this afternoon. She seems to be feeling better this afternoon than the start of the shift. She is tolerating low fat diet well. No other changes at this time. Call light within reach.
[2019-07-04 20:00] VITALS: BP 108/63; PULSE 69; TEMP 97.7
--- NOTE | 2019-07-04 20:00 | NUR ---
Report received. Assumed care for wood polisher. A&Ox3. Assessment complete. VS stable. Denies nausea/shortness of breath. Rating pain 3/10 to right side. Denies need for intervention. Lap sites x3 with griffin set-edges well approximated-no drainage noted. Drain to right side with scant amount of drainage-serosanguineous. Has been up and ambulated. Family at bedside visiting. Plan of care discussed to include HS meds, pain meds, nausea meds. Verbalizes understanding. Denies questions or concerns. Encouraged to call for increased pain or needs. Call light in reach. Will monitor.
[2019-07-05] VITALS: BP 104/58; PULSE 64; TEMP 98.2
[2019-07-05 04:00] VITALS: BP 111/64; PULSE 56; TEMP 97.9
[2019-07-05 07:59] VITALS: BP 104/61; PULSE 63; TEMP 97.6
--- NOTE | 2019-07-05 08:00 | NUR ---
Patient resting in bed at this time, at bedside. Patient is alert and oriented, answers questions appropriately. Patient requests PRN pain medication for 6/10 pain in abdomen. Patient denies other needs at this time, calll ight within reach.
[2019-07-05 10:12] LABS: HEMATOCRIT 33.4 % (37.0-47.0); MEAN CELL VOLUME 87 fl (80.0-100.0); MEAN CORPUSCULAR HEMOGLOBIN 29 pg (27.0-31.0); MEAN CORPUSCULAR HGB CONC 33 g/dl (33.0-37.0); MEAN PLATELET VOLUME 8.6 fl (7.4-10.4); PLATELET COUNT 330 K/mm3 (130-400); RED BLOOD COUNT 3.85 M/mm3 (4.10-5.30); REDCELL DISTRIBUTION WIDTH-CV 13.4 % (11.5-14.5)
[2019-07-05 10:20] LABS: BILIRUBIN,TOTAL 0.4 mg/dL (0.0-1.0); CALCIUM 9.3 mg/dL (8.4-10.2); CREATININE, serum 0.65 (0.52-1.25); POTASSIUM 4.6 mmol/L (3.4-5.0); TOTAL PROTEIN 7.7 gm/dL (6.4-8.2)
[2019-07-05 11:11] LABS: BAND 11 % (0-10); EOSINOPHIL 11 % (0-4); LYMPHOCYTE 20 % (20.0-51.0); NEUTROPHILS 49 % (42.0-75.2)
[2019-07-05 11:12] LABS: PLATELET ESTIMATE NORMAL (NORMAL)
[2019-07-05 12:22] VITALS: BP 109/74; PULSE 62; TEMP 97.8
[2019-07-05 17:01] VITALS: BP 103/58; PULSE 63; TEMP 98.2
--- NOTE | 2019-07-05 18:55 | NUR ---
BEDSIDE SHIFT REPORT GIVEN TO PAUL LAWTON.
[2019-07-05 19:55] VITALS: BP 105/57; PULSE 59; TEMP 97.6
--- NOTE | 2019-07-05 20:00 | NUR ---
Report received. Assumed care for audio engineer. A&Ox3. Assessment complete. VS stable. Denies nausea/shortness of breath. C/O pain to right side drain site-states it feels like intermittent stab/zaps-rating /10. Percocet given per dr order. Plan of care discussed for this shift to include HS meds/pain meds/ambulation. Teaching complete on nerve pain during healing. Denies questions or concerns. Refused stool softner stating she has had several liquid stools today. Family at bedside. Call light in reach. Will monitor.
[2019-07-06 00:05] VITALS: BP 100/60; PULSE 59; TEMP 98
[2019-07-06 04:00] VITALS: BP 98/50; PULSE 54; TEMP 97.9
--- NOTE | 2019-07-06 04:00 | NUR ---
Rested well this shift. Denied need for pain medication. Tolerating PO. Drain with minimal serosanguineous fluid. States she is ready to be discharged home. Call light in reach. Encouraged to call for needs. Verbalizes understanding. Will monitor.
[2019-07-06 07:03] LABS: HEMOGLOBIN 11.2 g/dl (12.5-16.0); MEAN CELL VOLUME 88 fl (80.0-100.0); MEAN CORPUSCULAR HEMOGLOBIN 29 pg (27.0-31.0); MEAN CORPUSCULAR HGB CONC 33 g/dl (33.0-37.0); MEAN PLATELET VOLUME 8.7 fl (7.4-10.4); PLATELET COUNT 358 K/mm3 (130-400); RED BLOOD COUNT 3.84 M/mm3 (4.10-5.30); REDCELL DISTRIBUTION WIDTH-CV 13.4 % (11.5-14.5)
[2019-07-06 07:07] LABS: HEMATOCRIT 33.6 % (37.0-47.0)
[2019-07-06 07:08] LABS: BILIRUBIN,TOTAL 0.3 mg/dL (0.0-1.0); CALCIUM 9.5 mg/dL (8.4-10.2); CREATININE, serum 0.67 (0.52-1.25); POTASSIUM 4.1 mmol/L (3.4-5.0); TOTAL PROTEIN 7.7 gm/dL (6.4-8.2)
--- NOTE | 2019-07-06 08:00 | NUR ---
SEE MORNING SHIFT ASSESSMENT. PATIENT SITTING UP IN BEDSIDE CHAIR. PERITONEAL DRAIN TO DEPENDENT DRAINAGE WITH SCANT AMOUNTS OF SEROSANGUENOUS DRAINAGE PRESENT IN BAG. ABDOMINAL LAP SITES KIMBERLY WITH EDGES WELL APPROXIMATED. CALL LIGHT WITHIN REACH. PATIENT DENIES ANY NEEDS AT THIS TIME.
[2019-07-06 08:52] VITALS: BP 103/66; PULSE 69; TEMP 97.2
[2019-07-06 11:44] LABS: BAND 5 % (0-10); EOSINOPHIL 2 % (0-4); LYMPHOCYTE 29 % (20.0-51.0); NEUTROPHILS 61 % (42.0-75.2); PLATELET ESTIMATE INCREASED (NORMAL)
[2019-07-06 12:54] VITALS: BP 109/68; PULSE 66; TEMP 97.8
[2019-07-06] MEDS ORDERED: AMOXICILLIN 8751 TAB PO (13:07)
[2019-07-06] MEDS ORDERED: NEURONTIN100 MG/CAP PO (13:07)
[2019-07-06] MEDS ORDERED: ATIVAN 1MG T1 MG/TAB PO (13:12)
--- NOTE | 2019-07-06 15:45 | NUR ---
DISCHARGE INSTRUCTIONS REVIEWED WITH PATIENT AND . DRAIN AND PICC LINE SITE CARE REVIEWED. ALL QUESTIONS ANSWERED. PATIENTS PICC LINE PULLED BY CHARGE NURSE. PATIENT TOLERATED WELL. PATIENT PERSONAL BELONGINGS GATHERED. PATIENT AMBULATED TO PERSONAL VEHICLE WITH SURGICAL STAFF. PATIENT DISCHARGED.
== END 2019-07-06 15:50 | disposition home or self-care (01) | DRG 395 ==
LOC: COL.ER 11:04 → JCC 12:04 → SURG 12:04 → JCC 07-03 17:29
PROVIDERS: Family Medicine; ADMIT Surgery
PROC: 02HV33Z Insertion of Infusion Device into Superior Vena Cava, Percutaneous Approach (ICD-10-PCS; principal; 2019-07-01)
PROC: 0F9530Z Drainage of Right Hepatic Duct with Drainage Device, Percutaneous Approach (ICD-10-PCS; 2019-07-01)
DX: K91.89 Other postprocedural complications and disorders of digestive system (principal); K29.70 Gastritis, unspecified, without bleeding; D72.829 Elevated white blood cell count, unspecified; K82.8 Other specified diseases of gallbladder; G43.909 Migraine, unspecified, not intractable, without status migrainosus; T39.395A Adverse effect of other nonsteroidal anti-inflammatory drugs [NSAID], initial encounter; Z90.49 Acquired absence of other specified parts of digestive tract
CPT/HCPCS: C1751; J1170; J2060; J2250; J2270; J2405; J2543; J3010; J7030; J7120; Q9967

== ENCOUNTER 2019-08-11 09:56 | Day surgery (SDC) | payer BC ==
[~2019-08-11] VITALS: Ht 165.1 cm; Wt 84.5 kg
[~2019-08-11 09:56] MED LIST changes: +AMOXICILLIN 8751 TAB PO; +ATIVAN 1MG T1 MG/TAB PO; +NEURONTIN100 MG/CAP PO; +PROBIOTIC ACID1 EAC3 PO; +TYLENOL 500MG500 MG PO
[2019-08-11 10:18] VITALS: BP 121/73; PULSE 62; TEMP 98.2
[2019-08-11 12:55] VITALS: BP 122/81; PULSE 72; TEMP 98.3
--- NOTE | 2019-08-11 12:55 | NUR ---
Pt to [facility] via cart from [facility]. Pt drowsy, but awake. Pt ambulates to recliner with stand by assistance x2. in room. VSS. Warm blankets provided. Sprite provided per pt request. Will continue to monitor. Call light within reach.
[2019-08-11 13:10] VITALS: BP 110/78; PULSE 71
--- NOTE | 2019-08-11 13:10 | NUR ---
Pt continues to rest. Denies pain or nausea. Tolerating sips of fluids without difficultes. Will continue to monitor. Call light within reach.
[2019-08-11 13:20] VITALS: TEMP 98.3
[2019-08-11 13:25] VITALS: BP 109/70; PULSE 57
--- NOTE | 2019-08-11 13:25 | NUR ---
Pt continues to rest. Denies needs. Call light within reach.
[2019-08-11 13:40] VITALS: BP 113/81; PULSE 58
--- NOTE | 2019-08-11 13:40 | NUR ---
Pt resting. Denies needs. Call light within reach.
--- NOTE | 2019-08-11 14:10 | NUR ---
Discharge instructions reviewed. Pt voices understanding. IV site discontinued with all parts intact. Pt up to dress. Call light within reach.
--- NOTE | 2019-08-11 14:20 | NUR ---
Pt escorted to private car via wheel chair. Pt accompanied home by her .
== END 2019-08-11 14:20 | disposition home or self-care (01) ==
LOC: SDCO 09:56
DX: T18.3XXA Foreign body in small intestine, initial encounter (principal); K83.2 Perforation of bile duct; R93.3 Abnormal findings on diagnostic imaging of other parts of digestive tract; R94.5 Abnormal results of liver function studies; K21.9 Gastro-esophageal reflux disease without esophagitis; G43.909 Migraine, unspecified, not intractable, without status migrainosus; F41.9 Anxiety disorder, unspecified
CPT/HCPCS: C1769; J2704; J7030; Q9967

== ENCOUNTER 2021-04-06 14:34 | Emergency (ER) | payer BC ==
[~2021-04-06] VITALS: Ht 165.1 cm; Wt 78.2 kg
[2021-04-06 15:02] VITALS: TEMP 98.1
[2021-04-06 16:03] LABS: COLLECTION METHOD CLEAN CATCH
[2021-04-06] MEDS ORDERED: PRENATAL TABLET PO (16:04)
[2021-04-06 16:11] LABS: BASO % 0.2 % (0.0-2.0); EOS # 0.1 (0.0-0.7); EOS % 0.8 % (0-4.0); GRAN # 9.8 (1.4-6.5); LYMPH # 1.8 (1.2-3.4); LYMPH % 14.4 % (20.0-51.0); MEAN CELL VOLUME 86 fl (80.0-100.0); MEAN CORPUSCULAR HEMOGLOBIN 30 pg (27.0-31.0); MEAN CORPUSCULAR HGB CONC 35 g/dl (33.0-37.0); MEAN PLATELET VOLUME 8.9 fl (7.4-10.4); MONO # 0.8 (0.1-0.6); PLATELET COUNT 245 K/mm3 (130-400); RED BLOOD COUNT 4.28 M/mm3 (4.10-5.30); REDCELL DISTRIBUTION WIDTH-CV 12.4 % (11.5-14.5)
[2021-04-06 16:12] LABS: HEMATOCRIT 36.9 % (37.0-47.0)
[2021-04-06 16:12] LABS: MUCOUS Present /lpf; PH 5 (5-8); SQUAMOUS EPITHELIAL 0-2 /hpf; URINE APPEARANCE Hazy; URINE BACTERIA Rare /hpf; URINE BILIRUBIN Negative (NEGATIVE); URINE BLOOD Negative (NEGATIVE); URINE COLOR Amber; URINE GLUCOSE Negative (NEGATIVE); URINE KETONE 2+ (NEGATIVE); URINE LEUKOCYTE ESTERASE Trace (NEGATIVE); URINE NITRATE Negative (NEGATIVE); URINE PROTEIN(semi-quant) Negative (NEGATIVE); URINE UROBILINOGEN >=4.0 mg/dL (NEGATIVE)
[2021-04-06 16:19] LABS: ALBUMIN 4.1 gm/dL (3.5-5.0); BILIRUBIN,TOTAL 0.6 mg/dL (0.0-1.0); CALCIUM 8.9 mg/dL (8.4-10.2); CREATININE, serum 0.69 (0.52-1.25); POTASSIUM 3.7 mmol/L (3.4-5.0); TOTAL PROTEIN 7.6 gm/dL (6.4-8.2)
[2021-04-06] MEDS ORDERED: REGLAN 10MG10 MG/TAB PO (17:13)
[2021-04-06 17:29] VITALS: BP 118/76; PULSE 84
== END 2021-04-06 17:29 | disposition home or self-care (01) ==
LOC: COL.ER 14:34
PROVIDERS: Physician Assistant
DX: O21.0 Mild hyperemesis gravidarum (principal); Z3A.13 13 weeks gestation of pregnancy
CPT/HCPCS: J2765; J7030

== ENCOUNTER 2021-10-04 06:13 | Inpatient (IN) | payer BC ==
[2021-10-04] VITALS (45 sets, daily range): BP systolic 89–154; BP diastolic 56–93; PULSE 62–122; TEMP 97.2–98.4
[~2021-10-04] VITALS: Ht 165.1 cm; Wt 94.1 kg
[~2021-10-04 06:13] MED LIST changes: +PRENATAL TABLET PO; +REGLAN 10MG10 MG/TAB PO
--- NOTE | 2021-10-04 06:25 | NUR ---
0625 - PATIENT AMBULATORY TO LDR4 WITH SPOUSE. PATIENT CHANGES INTO GOWN. PLAN OF CARE DISCUSSED. PATIENT AND SPOUSE ORIENTED TO ROOM. 0630 - PATIENT PLACED ON EFM. CATEGORY 1 STRIP NOTED UPON ARRIVAL. VS OBTAINED AND STABLE. PATIENT DENIES LEAKING OF FLUID, REGULAR CONTRACTIONS AND REPORTS GOOD MOVEMENT. 0640 - IV PLACED AND LABS OBTAINED ORDERED. 0645 - CONSENTS REVIEWED AND SIGNED BY PATIENT. 0705 - LR INITIATED ORDERED. CARE ONGOING.
[2021-10-04 07:20] LABS: ALBUMIN 2.7 gm/dL (3.5-5.0); BILIRUBIN,TOTAL 0.4 mg/dL (0.2-1.2); CALCIUM 8.1 mg/dL (8.4-10.2); CREATININE, serum 0.61 mg/dL (0.57-1.11); POTASSIUM 3.7 mmol/L (3.5-4.5); TOTAL PROTEIN 5.9 gm/dL (6.2-8.1)
[2021-10-04 07:40] LABS: BASO % 0.1 % (0.0-2.0); EOS # 0.1 K/mm3 (0.0-0.7); EOS % 1.6 % (0.0-4.0); GRAN # 5.6 K/mm3 (1.4-6.5); GRAN % 66.9 % (42.2-75.2); LYMPH # 1.8 K/mm3 (1.2-3.4); LYMPH % 21.4 % (20.0-51.0); MEAN CELL VOLUME 85 fl (80.0-100.0); MEAN CORPUSCULAR HGB CONC 33 g/dl (33.0-37.0); MEAN PLATELET VOLUME 9.9 fl (7.4-10.4); MONO # 0.7 K/mm3 (0.1-0.6); MONO % 8.6 % (1.7-9.3); PLATELET COUNT 218 K/mm3 (130-400); REDCELL DISTRIBUTION WIDTH-CV 14.9 % (11.5-14.5)
[2021-10-04 07:44] LABS: HEMATOCRIT 29.9 % (37.0-47.0); HEMOGLOBIN 9.9 g/dl (12.5-16.0); MEAN CORPUSCULAR HEMOGLOBIN 28 pg (27-31)
--- NOTE | 2021-10-04 10:05 | NUR ---
1005 - MD DOM AT BEDSIDE. PLAN OF CARE DISCUSSED. 1006 - US PERFORMED BY MD DOM. EFM REPOSITIONED. 1008 - SVE PERFORMED BY MD DOM. . 1010 - AROM PERFORMED BY MD DOM. CLEAR FLUID NOTED. 1012 - JAN CARE PERFORMED BY THIS RN. PATIENT REPOSITIONED. CARE ONGOING.
--- NOTE | 2021-10-04 11:03 | NUR ---
1103 - PATIENT OFF EFM FOR BRP. 1109 - PATIENT SITTING EDGE OF BED. EFM PLACED ON PATIENT. EFM TRACING POOR DUE TO MATERAL POSITION. EFM ADJUSTED. 1117 - PLAN OF CARE DISCUSSED. LR BOLUS INITIATED FOR EPIDURAL PLACEMENT. 1122 - ROSA WEST AT BEDSIDE. PATIENT POSITIONED FOR EPIDURAL PLACEMENT. EFM TRACING POOR DUE TO MATERNAL POSITION. EFM READJUSTED. 1127 - SINGLE SHOT GIVEN BY RN ONCOLOGY CLINICAL. 1135 - PATIENT REPOSITIONED IN BED. EFM AND TOCO ADJUSTED. CARE ONGOING.
--- NOTE | 2021-10-04 15:12 | NUR ---
1512 - LOPEZ REMOVED. 1514 - PATIENT PUSHING WITH CONTRACTIONS. GOOD MATERNAL EFFORT. 1523 - MD DOM CALLED AND NOTIFIED THAT PATIENT IS COMPLETE AND PUSHING WITH CONTRACTIONS WITH GOOD MATERNAL EFFORT. 1532 - MD DOM AT BEDSIDE. PATIENT CONTINUES TO PUSH WITH CONTRACTIONS. 1538 - VIABLE FEMALE DELIVERED, HEAD FOLLOWED BY BODY. CARE OF BABY ASSUMED BY PAUL JACOB. 1541 - DELIVERY OF INTACT PLACENTA. 1543 - REPAIR OF 2ND DEGREE LACERATION BY MD DOM. FUNDAL MASSAGE PERFORMED BY THIS RN.
[2021-10-05 02:15] VITALS: BP 121/79; PULSE 59; TEMP 97.6
[2021-10-05 05:41] LABS: HEMATOCRIT 26.1 % (37.0-47.0); HEMOGLOBIN 8.5 g/dl (12.5-16.0)
[2021-10-05 07:00] VITALS: BP 117/76; PULSE 65; TEMP 97.7
[2021-10-05] MEDS ORDERED: IBU600 MG PO (09:03)
--- NOTE | 2021-10-05 09:17 | NUR ---
Initial visit; Mom indisposed, Fire Patroller spoke with Dad offering congratulations and God's blessings for the of their daughter. Dad thanked Fire Patroller for looking in on them.
[2021-10-05 12:15] VITALS: BP 126/68; PULSE 68; TEMP 98
[2021-10-05 16:00] VITALS: BP 122/67; PULSE 78; TEMP 98.2
--- NOTE | 2021-10-05 16:50 | NUR ---
ALL DC PAPERWORK REVIEWED AND UNDERSTOOD BY PARENTS OF BABY. ALL FOLLOW UP APPOINTMENTS REVIEWED AND ACKNOWLEDGED. INFANT TO RETURN TOMORROW FOR REPEAT BILIRUBIN LEVEL, AND OUTPATIENT HEARING SCREEN. PARENTS AWARE. THIS NURSE ASSESS INFANT IN CARSEAT TO ENSURE A SAFE AND SECURE PLACEMENT. ALL BELONGINGS ACCOUNTED FOR PRIOR TO DC FROM UNIT.
== END 2021-10-05 17:10 | disposition home or self-care (01) | DRG 807 ==
LOC: LDR 06:13 → OB 06:13 → LDR 10:11 → OB 20:50
PROVIDERS: ADMIT Obstetrics & Gynecology
PROC: 10E0XZZ Delivery of Products of Conception, External Approach (ICD-10-PCS; principal; 2021-10-04)
PROC: 0KQM0ZZ Repair Perineum Muscle, Open Approach (ICD-10-PCS; 2021-10-04)
PROC: 10907ZC Drainage of Amniotic Fluid, Therapeutic from Products of Conception, Via Natural or Artificial Opening (ICD-10-PCS; 2021-10-04)
DX: O13.4 Gestational [pregnancy-induced] hypertension without significant proteinuria, complicating childbirth (principal); Z37.0 Single live birth; O99.344 Other mental disorders complicating childbirth; F41.9 Anxiety disorder, unspecified; O75.89 Other specified complications of labor and delivery; G43.909 Migraine, unspecified, not intractable, without status migrainosus; O69.81X0 Labor and delivery complicated by cord around neck, without compression, not applicable or unspecified; O70.1 Second degree perineal laceration during delivery; Z3A.38 38 weeks gestation of pregnancy
CPT/HCPCS: J2405; J2590; J7120